=== PATIENT | male | born 1965 | race African-American/Black ===

== ENCOUNTER 2018-03-31 00:43 | Emergency (ER) | payer BC ==
[2018-03-31 01:27] LABS: URINE BLOOD (Dip) POC Negative (NEGATIVE); URINE GLUCOSE (Dip) POC Negative (NEGATIVE); URINE KETONES (Dip) POC Negative (NEGATIVE); URINE LEUKOCYTE EST (Dip) POC Trace (NEGATIVE); URINE NITRITE (Dip) POC Negative (NEGATIVE); URINE TOTAL PROTEIN POC Negative (NEGATIVE)
[2018-03-31 01:27] LABS: URINE PH (Dip) POC 5.5 (5.0-8.5)
[2018-03-31] MEDS: CEFTRIAXONE 250 MG INJ IM (01:27)
[2018-03-31] MEDS: AZITHROMYCIN 250 MG TAB PO (01:27)
== END 2018-03-31 02:26 | disposition home or self-care (01) ==
LOC: FTE 00:43
DX: R30.0 Dysuria (principal)
CPT/HCPCS: 81003; 87591; 96372; 99284-25